=== PATIENT | female | born 1950 ===

== ENCOUNTER 2018-09-17 12:25 | Outpatient (CLI) | payer OTHER | END 2018-09-17 12:29 | disposition home or self-care (01) | LOC: SONOGRAMA 12:25 | DX: N60.11 Diffuse cystic mastopathy of right breast (principal); N60.12 Diffuse cystic mastopathy of left breast ==

== ENCOUNTER 2018-10-19 13:12 | Outpatient (CLI) | payer OTHER | END 2018-10-19 13:21 | disposition home or self-care (01) | LOC: SONOGRAMA 13:12 → MAMO-SONO 14:15 | DX: R10.2 Pelvic and perineal pain (principal) ==

== ENCOUNTER 2019-01-06 09:52 | Outpatient (CLI) | payer OTHER | END 2019-01-06 10:16 | disposition home or self-care (01) | LOC: SONOGRAMA 09:52 → MAMO-SONO 10:15 → SONOGRAMA 10:16 | DX: N95.0 Postmenopausal bleeding (principal) ==